=== PATIENT | male | born 1980 | race Caucasian/White ===

== ENCOUNTER 2016-11-17 14:48 | Emergency (ER) | payer OTHER ==
[~2016-11-17] VITALS: Ht 182.9 cm; Wt 111.6 kg
--- NOTE | 2016-11-17 16:59 | PHYS DOC ---
Past Medical History Past Medical History: Asthma Past Surgical History: No Surgical History Alcohol Use: Occasionally Drug Use: None Adult General Chief Complaint Chief Complaint: ABDOMINAL PAIN HPI HPI Patient is a 36 year old male who presents with left lower quadrant abdominal pain. Patient states he had sudden onset of left lower quadrant abdominal pain yesterday while at work, climbing off a truck. Patient states the pain gradually worsened throughout the day yesterday until he got home and took some anti-inflammatory. Patient states pain persist today and is focused in the right lower quadrant. Patient states once today while urinating the pain radiated to his left testicle. Patient denies fevers or chills. No nausea, vomiting or diarrhea. No blood in the stools; no blood in the urine. Patient denies any history of abdominal surgeries or abdominal trauma. Review of Systems Review of Systems Constitutional: Denies fever or chills Eyes: Denies change in visual acuity, redness, or eye pain HENT: Denies nasal congestion or sore throat Respiratory: Denies cough or shortness of breath Cardiovascular: No chest pain or palpitations GI: Denies , nausea, vomiting, bloody stools or diarrhea. Positive abdominal pain : Denies dysuria or hematuria Musculoskeletal: Denies back pain or joint pain Integument: Denies rash or skin lesions Neurologic: Denies headache, focal weakness or sensory changes Endocrine: Denies polyuria or polydipsia Allergies Allergies Allergies Coded Allergies Type Severity Reaction Last Updated Verified morphine Allergy Intermediate HIVES 11/17/16 Yes Physical Exam Physical Exam Constitutional: Well developed, well nourished, minimal acute distress, non- toxic appearance. HENT: Normocephalic, atraumatic, oropharynx moist, no oral exudates, nose normal. Eyes: PERRLA, EOMI, conjunctiva normal, no discharge. Neck: Normal range of motion, no tenderness, supple, no stridor. Cardiovascular:Heart rate regular rhythm, no murmur Lungs & Thorax: Bilateral breath sounds clear to auscultation Abdomen: Bowel sounds normal, soft, left inferior abdominal rectus muscle tenderness and left lower quadrant abdominal tenderness, no masses, no pulsatile masses. Skin: Warm, dry, no erythema, no rash. Back: No tenderness, no CVA tenderness. Extremities: No tenderness, no cyanosis, no edema. Neurologic: Alert and oriented X 3, normal motor function, normal sensory function, no focal deficits noted. Psychologic: Affect normal, judgement normal, mood normal. Current Patient Data Vital Signs Vital Signs Date Time Temp Pulse Resp B/P Pulse Ox O2 Delivery O2 Flow Rate FiO2 11/17/16 18:30 66 17 133/69 100 Room Air 11/17/16 14:52 98.1 98.1 Lab Values Laboratory Tests Test 11/17/16 17:00 Urine Collection Type Unknown Urine Color Yellow Urine Clarity Clear Urine pH 6.0 Urine Specific [place] >=1.030 Urine Protein Negativemg/dL (NEG-TRACE) Urine Glucose (UA) Negativemg/dL (NEG) Urine Ketones (Stick) Negativemg/dL (NEG) Urine Blood Negative (NEG) Urine Nitrite Negative (NEG) Urine Bilirubin Negative (NEG) Urine Urobilinogen Dipstick 1.0mg/dL (0.2 mg/dL) Urine Leukocyte Esterase Negative (NEG) Urine RBC 0/HPF (0-2) Urine WBC 0/HPF (0-4) Urine Bacteria 0/HPF (0-FEW) Urine Mucus Mod/LPF EKG EKG [] Radiology/Procedures Radiology/Procedures [] Course & Med Decision Making Course & Med Decision Making Pertinent Labs and Imaging studies reviewed. (See chart for details) [] Dragon Disclaimer Dragon Disclaimer This electronic medical record was generated, in whole or in part, using a voice recognition dictation system. Departure Departure Impression: Primary Impression: Diverticulitis large intestine Disposition: 01 HOME, SELF-CARE Condition: STABLE Referrals: NO PCP (PCP) Patient Instructions: Diverticulitis Scripts Metronidazole (Flagyl)250 Mg Tablet1 Tab PO TID #30 TAB Prov:APURVA PADILLA MD 11/17/16 Ciprofloxacin Hcl (Cipro)250 Mg Tablet1 Tab PO BID #20 TAB Prov:APURVA PADILLA MD 11/17/16 Problem Qualifiers Primary Impression: Diverticulitis large intestine Diverticulitis bleeding: without bleeding Diverticulitis complication: without perforation or abscess Qualified Code: K57.32 - Diverticulitis of large intestine without perforation or abscess without bleeding APURVA PADILLA MD Nov 17, 2016 16:59
[2016-11-17 17:10] LABS: BILIRUBIN,URINE NEGATIVE (NEG); GLUCOSE,URINE NEGATIVE (NEG); NITRITE,URINE NEGATIVE (NEG); PROTEIN,URINE NEGATIVE (NEG-TRACE)
[2016-11-17 17:20] LABS: BACTERIA,URINE 0 /HPF (0-FEW); RBC,URINE 0 /HPF (0-2); WBC,URINE 0 /HPF (0-4)
--- NOTE | 2016-11-17 17:39 | RAD ---
PROCEDURE CT abdomen and pelvis without intravenous contrast. HISTORY Severe left lower quadrant pain radiating to the groin. TECHNIQUE Helical CT of the abdomen and pelvis was performed without intravenous or oral contrast. Exposure: One or more of the following individualized dose reduction techniques were utilized for this examination: 1. Automated exposure control. 2. Adjustment of the mA and/or kV according to patient size. 3. Use of iterative reconstruction technique. COMPARISON None. FINDINGS Evaluation of solid organs is limited by lack of intravenous contrast. Evaluation of enteric structures may be limited by lack of oral contrast. Liver, spleen, pancreas, and bilateral adrenal glands are unremarkable. Gallbladder is almost completely contracted. Bilateral kidneys and ureters are free of stone or obstruction. Appendix is without evidence of inflammation. Urinary bladder is unremarkable. There is a large amount of inflammation involving the proximal sigmoid colon associate with a diverticulum, compatible with diverticulitis. No perforation or abscess is seen. Small amount of free fluid present pelvis including in the pouch of Jero. IMPRESSION 1. Acute diverticulitis of the proximal sigmoid colon. No perforation or abscess is identified at this time. 2. No evidence of urinary stone. Electronically signed by: Wiliam Ford MD (Nov 17, 2016 17:37:42)
[2016-11-17] MEDS ORDERED: CIPR250T30 PO (18:23)
[2016-11-17] MEDS ORDERED: METR250T PO (18:24)
[2016-11-17 18:30] VITALS: BP 133/69
== END 2016-11-17 18:35 | disposition home or self-care (01) ==
LOC: ER 14:48
DX: K57.32 Diverticulitis of large intestine without perforation or abscess without bleeding (principal); J45.909 Unspecified asthma, uncomplicated; Z88.5 Allergy status to narcotic agent
CPT/HCPCS: 74176; 81001; 99285-25